=== PATIENT | female | born 1995 | race Asian ===

== ENCOUNTER → 2017-02-25 | Outpatient (CLI) | payer OTHER ==
--- NOTE | 2017-02-25 13:49 | DIAGNOSTIC IMAGING REPORT ---
SOFT TIS HEAD/NECK-THYROID HISTORY: Thyroid enlargement E04.9 Thyroid goiter COMPARISON: None. FINDINGS: Right lobe: Maximum dimension 5.6 cm. Several mid and lower pole cyst measuring 3, 2, and 5 mm respectively. Left lobe: Maximum dimension 6.0 cm. Uniform echogenicity. Isthmus: No nodules. IMPRESSION: Mild generalized thyroid enlargement. Several small right thyroid cyst. No significant nodular pathology. The above report was generated using voice recognition software. It may contain grammatical, syntax or spelling errors. Electronically signed by: Alejandro Marquis M.D. 02/25/2017 1:47 PM Dictated Date/Time: 02/25/2017 1:45 PM
[2017-02-25 15:39] LABS: THYROID STIMULATING HORMONE 1.03 uIu/ml (0.300-4.500)
== END | disposition home or self-care (01) ==
LOC: C.ULTR 13:07
PROVIDERS: ATTEND Internal Medicine Endocrinology, Diabetes & Metabolism
DX: E04.9 Nontoxic goiter, unspecified (principal); E05.90 Thyrotoxicosis, unspecified without thyrotoxic crisis or storm